=== PATIENT | female | born 1940 | race Caucasian/White ===

== ENCOUNTER → 2022-09-12 13:18 | Outpatient (CLI) | payer MEDICARE, SELFPAY ==
--- NOTE | ~2022-09-12 | XR_ITS ---
Right Hand Technique: PA, oblique, and lateral views were obtained. Clinical History: Second MP joint pain Findings: No acute fracture or dislocation is seen. Osseous alignment is anatomic. There is probable minimal degenerative change of the second and third metacarpophalangeal joints. Soft tissues are unre markable. 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 Reviewed, dictated and finalized at location M. 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
== END ==
DX: M79.641 Pain in right hand (principal)
CPT/HCPCS: 73130